=== PATIENT | male | born 1970 | race American Indian/Alaskan Native ===

== ENCOUNTER 2017-09-04 09:42 | Outpatient (CLI) | payer BC ==
--- NOTE | 2017-09-04 13:27 | XRay Report ---
RIGHT WRIST, 3 VIEWS: History: wrist pain, injury. Normal bone mineralization. Minor osteoarthritic changes are identified at the right wrist. There is no evidence for fracture, dislocation or ligamentous injury. The soft tissues are within normal limits. IMPRESSION: Minimal osteoarthritic changes.
== END 2017-09-04 09:43 | disposition home or self-care (01) ==
LOC: SPVIMAG 09:42
PROVIDERS: ATTEND Orthopaedic Surgery
DX: M19.031 Primary osteoarthritis, right wrist (principal)